=== PATIENT | male | born 1965 | race Caucasian/White ===

== ENCOUNTER → 2016-08-02 | Outpatient (CLI) | payer BC, OTHER ==
--- NOTE | 2016-08-06 08:49 | SLEEPCENT ---
DATE OF PROCEDURE: 08/02/2016 REQUESTING PROVIDER: Maria Esther Eagle NP INTERPRETATION: Nocturnal polysomnography was performed for evaluation of sleep apnea syndrome symptoms in this patient with nonrestorative sleep. 6 hours and 33 minutes of data were reviewed. There were 277 minutes of sleep identified. Sleep latency was short at 6.5 minutes. Rapid eye movement (REM) sleep was delayed at 175 minutes. Sleep architecture showed significant fragmentation and poor progression. Overall sleep efficiency was good at 72%, but there was a reduction in REM time. The patient's electrocardiogram (EKG) showed a sinus rhythm with an average heart rate of 60 beats per minute. Electroencephalogram (EEG) showed reasonably normal waveforms for awake and sleep. There were 268 respiratory events identified of 10 seconds in duration or greater for an apnea-hypopnea index of 57.9. The events were primarily obstructive, not exclusive to sleep stage nor body posture. Arousals from respiratory events occurred 42.6 times per hour. Oxygen desaturations were seen into the 70s. The remaining measures of sleep physiology were reasonably normal. IMPRESSION: Severe obstructive sleep apnea syndrome (G47.33). Apnea-hypopnea index of 57.9. RECOMMENDATIONS: The patient should be encouraged to return to the sleep disorder center for pressure therapy. In the interim, alcohol and sedative avoidance should be practiced and caution exercised during the operation of motor vehicles.
== END | disposition home or self-care (01) ==
LOC: M SLEEP 19:21
PROVIDERS: ATTEND Nurse Practitioner Adult Health
DX: G47.33 Obstructive sleep apnea (adult) (pediatric) (principal)

== ENCOUNTER → 2016-09-05 | Outpatient (CLI) | payer OTHER ==
--- NOTE | 2016-09-10 20:43 | SLEEPCENT ---
DATE OF PROCEDURE: 09/05/2016 ORDERED BY: Maria Esther Eagle Nocturnal polysomnography was performed for the titration of pressure therapy in this patient with obstructive sleep apnea syndrome. Apnea-hypopnea index of 57.9. For testing, the patient was fit with a [employer] Mirage Quattro full face mask of medium size. 4 cm of water pressure were applied to the circuit and the lights were extinguished. 7 hours and 58 minutes of data were reviewed. There were 411 minutes of sleep identified. Sleep latency was short at 6 minutes. Rapid eye movement (REM) latency was normal at 82 minutes. Sleep architecture was good with evidence of REM rebound. There were 3 long REM periods appreciated. Overall sleep efficiency was 87%. The patient's EKG showed sinus rhythm with an average heart rate of 64 beats per minute. EEG showed normal waveforms for wake and sleep. Respiratory events were found best palliated with continuous positive airway pressure (CPAP) at a pressure of +12. CPAP tolerance was reasonably good. There was little limb activity and the remaining measures of sleep physiology were normal. IMPRESSION: Obstructive sleep apnea syndrome (G47.33). RECOMMENDATION: Nightly use of pressure therapy at 12 cm of water. Copy To: Dr. Chay Mckee
== END ==
LOC: M SLEEP 19:48
PROVIDERS: ATTEND Nurse Practitioner Adult Health
DX: G47.33 Obstructive sleep apnea (adult) (pediatric) (principal)

== ENCOUNTER → 2021-05-22 | Outpatient (CLI) | payer OTHER ==
--- NOTE | 2021-05-22 12:08 | REP ---
INDICATION: SMOKER COMPARISON: None. TECHNIQUE: Axial noncontrast images from the thoracic inlet to the upper abdomen using low-dose lung screening technique (LDCT). FINDINGS: Bilateral lung desai are well aerated. There is a 6 mm noncalcified subpleural nodule along the posterior aspect of the apical left lower lobe (image 50). No further consolidation, suspicious nodule or mass lesion appreciated. No effusion. No pneumothorax. Tracheobronchial tree is patent. Mediastinum is grossly normal. IMPRESSION: Lung-RADS category 3. 6 mm nodule in the left lung. Management recommendations include 6 month low-dose CT follow-up evaluation. <Electronically signed by Oliverio Allison > 05/22/21 [id number]
== END ==
LOC: M RAD 09:49
PROVIDERS: ATTEND Family Medicine
DX: Z87.891 Personal history of nicotine dependence (principal)

== ENCOUNTER 2021-11-29 09:42 | Day surgery (SDC) | payer OTHER ==
[~2021-11-29] VITALS: Ht 180.3 cm; Wt 142.2 kg
[~2021-11-29 09:42] MED LIST: ASPI-164 PO; LISI10TA22 PO; NS 1,000 ML IV ONE; OMEP40CA5 PO; SIMV10TA21 PO; SYNT75TA PO; VITA200031 PO
[2021-11-29] MEDS ORDERED: propofoL 200 MG/20 ML VIAL As Ordered ONE (11:09)
[2021-11-29] MEDS ORDERED: LIDOCAINE 2% 100MG/5ML SDV (FOR ANES.) As Ordered ONE (11:09)
[2021-11-29 11:30] VITALS: BP 122/76
== END 2021-11-29 11:45 | disposition home or self-care (01) ==
LOC: M OPP 09:42
PROVIDERS: ATTEND Internal Medicine Gastroenterology
DX: Z12.11 Encounter for screening for malignant neoplasm of colon (principal); K64.0 First degree hemorrhoids; E03.9 Hypothyroidism, unspecified; E78.5 Hyperlipidemia, unspecified; I10 Essential (primary) hypertension; R12 Heartburn; G47.33 Obstructive sleep apnea (adult) (pediatric); Z99.89 Dependence on other enabling machines and devices; Z79.02 Long term (current) use of antithrombotics/antiplatelets; Z79.82 Long term (current) use of aspirin; Z79.899 Other long term (current) drug therapy